=== PATIENT | female | born 1990 | race Asian ===

== ENCOUNTER 2023-05-02 05:29 | Inpatient (IN) | payer OTHER ==
[2023-05-02 05:46] VITALS: BMI 30.5
[2023-05-02] MEDS ORDERED: hydrALAZINE 20 MG/ML VIAL SLOW IVP PRN (06:59)
[2023-05-02] MEDS ORDERED: Carboprost 250 MCG/ML AMP IM PRN (06:59)
[2023-05-02] MEDS ORDERED: Ondansetron PF 4 MG/2 ML Vial IVP PRN ×4 (06:59→22:34)
[2023-05-02] MEDS ORDERED: Ibuprofen 800 MG TAB PO PRN (06:59)
[2023-05-02] MEDS ORDERED: fentaNYL 50 mcg/mL 1 mL Vial SLOW IVP PRN ×2 (06:59→22:34)
[2023-05-02] MEDS ORDERED: Diphenoxylate HCl/Atropine Tablet PO PRN (06:59)
[2023-05-02] MEDS ORDERED: Methylergonovine 0.2 MG/ML VIAL IM PRN (06:59)
[2023-05-02] MEDS ORDERED: Misoprostol 200 MCG TAB PR PRN (06:59)
[2023-05-02] MEDS ORDERED: Tranexamic Acid 1,000 MG/10 ML VIAL IVP PRN (06:59)
[2023-05-02] MEDS ORDERED: Lidocaine 1% (PF) 30 ML VIAL SC PRN (06:59)
[2023-05-02] MEDS ORDERED: Acetaminophen 500 MG TAB PO PRN (06:59)
[2023-05-02] MEDS ORDERED: Promethazine HCl 25 MG/ML VIAL IM PRN ×3 (06:59→22:34)
[2023-05-02] MEDS ORDERED: Oxytocin 30 units/NS 500 ML 500 ML IV SCH ×2 (07:00)
[2023-05-02] MEDS ORDERED: Misoprostol 100 MCG TAB VAG SCH (07:00)
[2023-05-02 08:26] LABS: Hematocrit 36.5 % (34.9-44.5); Hemoglobin 12.7 g/dL (12.0-15.5); Mean Corpuscular HGB CONC 34.8 g/dL (32.0-36.0); Mean Corpuscular Hemoglobin 30.8 pg (27.0-33.0); Mean Corpuscular Volume 88.4 fl (81.6-98.3); Mean Platelet Volume 10.7 fl (7.4-10.4); Platelet Count 266 10x3/uL (150-450); RBC Distribution Width 13.3 % (11.5-14.5); Red Blood Cell (RBC) Count 4.13 10x6/uL (3.90-5.03); White Blood Cell (WBC) Count 9.1 10x3/uL (3.5-10.5)
[2023-05-02 08:44] LABS: HBSAg Index 0.19 S/CO (0-0.99); Hep B Surf Ag - L&D Non-Reactive S/CO (NonReactive)
[2023-05-02 08:55] LABS: Syphilis Antibody Nonreactive (Nonreactive)
[2023-05-02] MEDS ORDERED: Prenatal Vitamin 1 TAB PO SCH (09:00)
[2023-05-02] MEDS ORDERED: Levothyroxine Sodium 50 MCG TAB PO SCH (09:00)
[2023-05-02] MEDS ORDERED: fentaNYL/Ropivacaine Epidural 100 ML ONE (10:18)
[2023-05-02] MEDS ORDERED: Lactated Ringer's 500 ML IV PRN (12:51)
[2023-05-02] MEDS ORDERED: ePHEDrine Sulfate 50 MG/10 ML VIAL SLOW IVP PRN (12:51)
[2023-05-02] MEDS ORDERED: diphenhydrAMINE 50 MG/ML VIAL IVP PRN ×2 (12:51→22:34)
[2023-05-02] MEDS ORDERED: Naloxone HCl 0.4 mg/ml Vial IVP PRN ×4 (12:51→22:34)
[2023-05-02] MEDS ORDERED: Moisturizing Cream (Eucerin) 113 GM JAR TOP PRN ×2 (12:51→22:34)
[2023-05-02] MEDS ORDERED: Communication Order-Pharmacy FS SCH ×2 (13:00→22:45)
[2023-05-02] MEDS ORDERED: fentaNYL 2 mcg/Ropivacaine 0.2% Epidural 100 ML CADD EPIDURAL SCH (13:00)
[2023-05-02] MEDS ORDERED: Azithromycin 500 MG VIAL ONE (19:14)
[2023-05-02] MEDS ORDERED: CEFAZOLIN 2 GM VIAL ONE (19:14)
[2023-05-02] MEDS ORDERED: Oxytocin 10 UNITS/ML VIAL ONE ×2 (21:17→21:38)
[2023-05-02] MEDS ORDERED: PHENYLEPHRINE-NS 100 MCG/ML 10 ML SYRINGE ONE (21:17)
[2023-05-02] MEDS ORDERED: Phenylephrine 40 MG/NS 250 ML 250 ML ONE (21:17)
[2023-05-02] MEDS ORDERED: Lidocaine 2% MPF 10 ML AMP (For Epidural Use) ONE (21:19)
[2023-05-02] MEDS ORDERED: KETAMINE 100 MG/ML (5ML VIAL) ONE (21:21)
[2023-05-02] MEDS ORDERED: Ondansetron PF 4 MG/2 ML Vial ONE (21:25)
[2023-05-02] MEDS ORDERED: Metoclopramide HCl 10 MG/2 ML VIAL ONE (21:25)
[2023-05-02] MEDS ORDERED: Promethazine HCl 25 MG/ML VIAL ONE (21:25)
[2023-05-02] MEDS ORDERED: Dexamethasone 4 mg/ml Vial ONE (21:25)
[2023-05-02] MEDS ORDERED: Ketorolac Tromethamine 30 MG/ML VIAL ONE (21:37)
[2023-05-02] MEDS ORDERED: Morphine PF 10 MG/10 ML VIAL ONE (21:40)
[2023-05-02] MEDS ORDERED: Meperidine HCl/PF 25 MG/ML VIAL SLOW IVP PRN (22:34)
[2023-05-02] MEDS ORDERED: Naloxone HCl 0.4 mg/ml Vial IV PRN (22:34)
[2023-05-02] MEDS ORDERED: Promethazine HCl 25 MG SUPP PR PRN (22:34)
[2023-05-02] MEDS ORDERED: Ketorolac Tromethamine 30 MG/ML VIAL IVP PRN (22:34)
[2023-05-02] MEDS ORDERED: Ketorolac Tromethamine 30 MG/ML VIAL IVP SCH (22:45)
[2023-05-03] MEDS ORDERED: diphenhydrAMINE 25 MG CAP PO PRN (01:30)
[2023-05-03] MEDS ORDERED: Ondansetron PF 4 MG/2 ML Vial IVP PRN (01:30)
[2023-05-03] MEDS ORDERED: Lanolin Ointment 7 GM TUBE TOP PRN (01:30)
[2023-05-03] MEDS ORDERED: Oxytocin 30 units/NS 500 ML 500 ML IV SCH (01:30)
[2023-05-03] MEDS ORDERED: Boostrix 0.5 ML (Tdap) VIAL (>/=7 yrs of age) IM ONE (01:30)
[2023-05-03] MEDS ORDERED: Methylergonovine 0.2 MG/ML VIAL IM PRN (01:30)
[2023-05-03] MEDS ORDERED: hydrALAZINE 20 MG/ML VIAL SLOW IVP PRN (01:30)
[2023-05-03] MEDS ORDERED: Misoprostol 200 MCG TAB PR PRN (01:30)
[2023-05-03 04:00] LABS: Hematocrit 29.3 % (34.9-44.5); Hemoglobin 10.2 g/dL (12.0-15.5); Mean Corpuscular HGB CONC 34.8 g/dL (32.0-36.0); Mean Corpuscular Hemoglobin 30.7 pg (27.0-33.0); Mean Corpuscular Volume 88.3 fl (81.6-98.3); Mean Platelet Volume 10.3 fl (7.4-10.4); Platelet Count 226 10x3/uL (150-450); RBC Distribution Width 13.6 % (11.5-14.5); Red Blood Cell (RBC) Count 3.32 10x6/uL (3.90-5.03); White Blood Cell (WBC) Count 15.1 10x3/uL (3.5-10.5)
[2023-05-03] MEDS: Levothyroxine Sodium 50 MCG TAB PO SCH (05:34)
[2023-05-03] MEDS: Acetaminophen 500 MG TAB PO SCH ×3 (05:35→23:17)
[2023-05-03] MEDS: Ferrous Sulfate 325 MG TAB PO SCH ×2 (07:23→23:17)
[2023-05-03] MEDS: Prenatal Vitamin 1 TAB PO SCH (08:33)
[2023-05-03] MEDS: Docusate 100 MG CAP PO SCH ×2 (08:33→21:25)
[2023-05-03] MEDS: HYDROcodone/Acetaminophen 5/325 mg Tablet PO PRN ×3 (12:34→21:28)
[2023-05-03] MEDS: Ibuprofen 800 MG TAB PO SCH ×2 (14:22→21:25)
[2023-05-04] MEDS: HYDROcodone/Acetaminophen 5/325 mg Tablet PO PRN ×4 (01:55→20:03)
[2023-05-04] MEDS: Levothyroxine Sodium 50 MCG TAB PO SCH (06:21)
[2023-05-04] MEDS: Ibuprofen 800 MG TAB PO SCH ×3 (06:21→21:08)
[2023-05-04] MEDS: Acetaminophen 500 MG TAB PO SCH (06:32)
[2023-05-04] MEDS: Ferrous Sulfate 325 MG TAB PO SCH ×2 (07:24→21:00)
[2023-05-04] MEDS: Simethicone Chewable 80 MG TAB PO PRN ×2 (09:30→14:15)
[2023-05-04] MEDS: Prenatal Vitamin 1 TAB PO SCH (09:31)
[2023-05-04] MEDS: Acetaminophen 325 MG TAB PO PRN ×2 (09:31→18:03)
[2023-05-04] MEDS: Docusate 100 MG CAP PO SCH ×2 (09:31→20:03)
[2023-05-05] MEDS: Ibuprofen 800 MG TAB PO SCH ×3 (06:24→20:26)
[2023-05-05] MEDS: Levothyroxine Sodium 50 MCG TAB PO SCH (06:26)
[2023-05-05] MEDS: Simethicone Chewable 80 MG TAB PO PRN ×4 (06:32→20:26)
[2023-05-05] MEDS: Acetaminophen 325 MG TAB PO PRN ×2 (06:32→20:26)
[2023-05-05] MEDS: Ferrous Sulfate 325 MG TAB PO SCH ×2 (07:13→21:00)
[2023-05-05] MEDS: HYDROcodone/Acetaminophen 5/325 mg Tablet PO PRN (09:26)
[2023-05-05] MEDS: Prenatal Vitamin 1 TAB PO SCH (09:26)
[2023-05-05] MEDS: Docusate 100 MG CAP PO SCH ×2 (09:26→20:26)
[2023-05-06] MEDS: Simethicone Chewable 80 MG TAB PO PRN ×2 (00:42→05:35)
[2023-05-06] MEDS: Acetaminophen 325 MG TAB PO PRN (01:09)
[2023-05-06] MEDS: Ibuprofen 800 MG TAB PO SCH ×2 (05:35→14:15)
[2023-05-06] MEDS: Levothyroxine Sodium 50 MCG TAB PO SCH (05:35)
[2023-05-06] MEDS: Prenatal Vitamin 1 TAB PO SCH (08:11)
[2023-05-06] MEDS: HYDROcodone/Acetaminophen 5/325 mg Tablet PO PRN ×2 (08:11→17:06)
[2023-05-06] MEDS: Docusate 100 MG CAP PO SCH (08:12)
[2023-05-06 08:16] VITALS: BP 114/57; TEMP 98
== END 2023-05-06 18:05 | disposition home or self-care (01) | DRG 788 ==
LOC: CSHLD/OP 05:29 → CSHLD 07:00 → CSHPP 05-03 00:55
PROVIDERS: ADMIT Obstetrics & Gynecology; ATTEND Obstetrics & Gynecology
PROC: 10D00Z1 Extraction of Products of Conception, Low, Open Approach (ICD-10-PCS; principal; 2023-05-02)
PROC: 10907ZC Drainage of Amniotic Fluid, Therapeutic from Products of Conception, Via Natural or Artificial Opening (ICD-10-PCS; 2023-05-02)
PROC: 3E033XZ Introduction of Vasopressor into Peripheral Vein, Percutaneous Approach (ICD-10-PCS; 2023-05-02)
DX: O42.02 Full-term premature rupture of membranes, onset of labor within 24 hours of rupture (principal); O76 Abnormality in fetal heart rate and rhythm complicating labor and delivery; O62.1 Secondary uterine inertia; Z3A.38 38 weeks gestation of pregnancy; Z37.0 Single live birth; O64.0XX0 Obstructed labor due to incomplete rotation of fetal head, not applicable or unspecified
CPT/HCPCS: 36415; 51702; 85027; 86780; 86850; 86900; 86901; 87340; 99285; J0456; J1100; J1885; J2274; J2405; J2550; J2590; J2765